=== PATIENT | male | born 1955 | race Two or more races ===

== ENCOUNTER → 2017-12-08 | Emergency (ER) | payer OTHER ==
[~2017-12-08] VITALS: Ht 165.1 cm; Wt 103.9 kg
[~2017-12-08] MED LIST: LOSARTAN POTAS100 MG; PENTOXIFYLLINE400 MG; RENAL VITAMIN0.8 MG; SENSIPAR60 MG; TOPROL XL25 M1; ZOCOR40 MG
== END | disposition home or self-care (01) ==
LOC: ER 18:08
DX: I10 Essential (primary) hypertension (principal)

== ENCOUNTER 2018-01-10 19:14 | Inpatient (IN) | payer OTHER ==
[~2018-01-10] VITALS: Ht 165.1 cm; Wt 102.1 kg
== END 2018-01-15 10:51 | disposition designated cancer center or children's hospital (05) | DRG 280 ==
LOC: ER 19:14 → SEC-K 01-11 09:48 → MEDJ 01-11 09:48 → MEDI 01-11 11:43 → MEDJ 01-15 10:51
PROC: 4A12X4Z Monitoring of Cardiac Electrical Activity, External Approach (ICD-10-PCS; 2018-01-11)
PROC: 5A1D70Z Performance of Urinary Filtration, Intermittent, Less than 6 Hours Per Day (ICD-10-PCS; principal; 2018-01-12)
PROC: B246ZZZ Ultrasonography of Right and Left Heart (ICD-10-PCS; 2018-01-12)
DX: I21.4 Non-ST elevation (NSTEMI) myocardial infarction (principal); N18.6 End stage renal disease; I12.0 Hypertensive chronic kidney disease with stage 5 chronic kidney disease or end stage renal disease; I24.9 Acute ischemic heart disease, unspecified; E66.8 Other obesity; E78.4 Other hyperlipidemia; E11.22 Type 2 diabetes mellitus with diabetic chronic kidney disease; Z99.2 Dependence on renal dialysis; E21.2 Other hyperparathyroidism; I27.29 Other secondary pulmonary hypertension; I34.0 Nonrheumatic mitral (valve) insufficiency